=== PATIENT | male | born 1950 | race African-American/Black ===

== ENCOUNTER 2017-06-20 04:51 | Emergency (ER) | payer MEDICARE, BC | END 2017-06-20 05:18 | disposition left against medical advice (07) | LOC: ERS 04:51 | DX: Z53.21 Procedure and treatment not carried out due to patient leaving prior to being seen by health care provider (principal) ==

== ENCOUNTER 2017-07-02 07:43 | Outpatient (CLI) | payer MEDICARE, BC ==
--- NOTE | 2017-07-02 11:14 | MRI ---
MRI CERVICAL SPINE WITHOUT CONTRAST: Date: 07/02/17 HISTORY: Cervicalgia. Cervical radiculopathy. COMPARISON: None. TECHNIQUE: Cervical spine MRI is performed without intravenous Gadolinium administration. Multisequential, multi planar imaging is performed. FINDINGS: There is straightening of the normal cervical lordosis. Cervical spine vertebral body height is maint ained. There is no fracture. There is T1 marrow signal hypointensity with associated T2 and STIR hype rintensity involving the inferior end plate of C4, superior end plate of C5, inferior end plate of C7 , and superior end plate of T1. Type II Modic changes are favored. No MR evidence of ligamentous inju ry. Visualized brain parenchyma, cervicomedullary junction, cervical cord, and the upper thoracic cord fong ve a normal size and signal intensity. C2-C3: There is a central disc osteophyte complex that abuts the thecal sac. There is an abnormal T2 hyperin tensity along the right aspect of the cord. No high grade central canal stenosis or high grade forami nal narrowing. C3-C4: No significant disc osteophyte complex. No significant central canal stenosis. Moderate right foramin al narrowing. Mild to moderate left foraminal narrowing. C4-C5: Broad based disc osteophyte complex abuts the thecal sac. Mild central canal stenosis. Degenerative c hanges of bilateral uncovertebral joints results in moderate to severe right and moderate left forami nal narrowing. C5-C6: Broad based disc osteophyte complex abuts the thecal sac. No high grade central canal stenosis. Degen erative changes in bilateral uncovertebral joints results in moderate to severe bilateral foraminal n arrowing. C6-C7: No significant disc osteophyte complex. No significant central canal stenosis. Degenerative changes o f bilateral uncovertebral joints results in mild to moderate bilateral foraminal narrowing. C7-T1: Broad based disc osteophyte complex without significant central canal stenosis. Degenerative changes of bilateral uncovertebral joints results in mild to moderate right and mild left foraminal narrowing . IMPRESSION: 1. Degenerative changes of the cervical spine as above. There is no high grade central canal stenosi s. 2. Nonspecific T2 and STIR hyperintensity involving the right aspect of the cord at the C2-C3 level. Postcontrast imaging is recommended for complete evaluation. Area of malacic change is less favored given the location of the signal abnormality and given the fact that there is no high grade central c anal stenosis. POS: KALANIH
== END 2017-07-02 07:44 | disposition home or self-care (01) ==
LOC: MRI 07:43
PROVIDERS: ATTEND Family Medicine
DX: M54.12 Radiculopathy, cervical region (principal); M54.2 Cervicalgia; M47.892 Other spondylosis, cervical region
CPT/HCPCS: 72141

== ENCOUNTER 2018-07-27 21:20 | Emergency (ER) | payer MEDICARE, BC ==
[2018-07-27 21:47] LABS: #Eosinphils 0.1 thou/uL (0.0-0.7); #Lymphocytes 1.9 thou/uL (1.20-3.40); #Monocytes 0.5 thou/uL (0.11-0.59); #Neutrophils 2.9 thou/uL (1.40-6.50); %Basophils 0.4 % (0.0-1.0); %Lymphocytes 35.2 % (21.0-51.0); %Monocytes 9.8 % (0.0-10.0); %Neutrophils 52.6 % (42.0-75.0); Hemoglobin 13.5 g/dL (14.0-18.0); Mean Corpuscular HGB CONC 33.3 g/dL (32.0-36.0); Mean Corpuscular Hemoglobin 28.7 pg (27.0-31.0); Mean Corpuscular Volume 86.1 fL (78.0-98.0); Mean Platelet Volume 8.1 fL (7.4-10.4); Platelet Count 198 thou/uL (130-400); White Blood Cell (WBC) Count 5.4 thou/uL (4.8-10.8)
[2018-07-27 22:10] LABS: ALT (SGPT) 15 U/L (8-55); AST (SGOT) 21 U/L (5-34); Albumin 4.5 g/dL (3.4-4.8); Alkaline Phosphatase 95 U/L (40-150); Anion Gap 17 mmol/L (10-20); BUN (Urea Nitrogen) 14 mg/dL (8.4-25.7); Bilirubin, Total 0.7 mg/dL (0.2-1.2); Calc. Creatinine Clearance 0 mL/min (70-130); Carbon Dioxide 24 mmol/L (23-31); Chloride 101 mmol/L (98-107); Estimated GFR-MDRD 80; Glucose 93 mg/dL (80-115); Lipase 29 U/L (8-78); Potassium 3.7 mmol/L (3.5-5.1); Protein, Total 7.5 g/dL (5.8-8.1); Sodium 138 mmol/L (136-145)
[2018-07-28] MEDS ORDERED: Ondansetron ODT 8 MG TAB ONE (00:23)
[2018-07-28] MEDS ORDERED: Dicyclomine 20 MG TAB ONE (00:23)
== END 2018-07-28 00:31 | disposition home or self-care (01) ==
LOC: ERS 21:20
DX: R10.9 Unspecified abdominal pain (principal); I10 Essential (primary) hypertension; Z79.899 Other long term (current) drug therapy; Z79.82 Long term (current) use of aspirin
CPT/HCPCS: 36415; 80053; 83690; 85025; 99284

== ENCOUNTER 2019-02-18 10:14 | Emergency (ER) | payer MEDICARE, BC ==
[2019-02-18] MEDS ORDERED: Iopamidol 370 76% 100 ML VIAL ONE (11:44)
[2019-02-18 11:52] LABS: PTT 30.6 SEC (22.9-36.1); Prothrombin Time 13.6 SEC (12.0-14.7)
[2019-02-18 11:54] LABS: #Eosinphils 0.1 thou/uL (0.0-0.7); #Monocytes 0.5 thou/uL (0.11-0.59); #Neutrophils 2.4 thou/uL (1.40-6.50); %Basophils 0.9 % (0.0-1.0); %Eosinophils 2.3 % (0.0-10.0); %Lymphocytes 25.8 % (21.0-51.0); %Monocytes 11.4 % (0.0-10.0); %Neutrophils 59.6 % (42.0-75.0); Hemoglobin 13.7 g/dL (14.0-18.0); Mean Corpuscular HGB CONC 32.7 g/dL (32.0-36.0); Mean Corpuscular Hemoglobin 28.6 pg (27.0-31.0); Mean Corpuscular Volume 87.4 fL (78.0-98.0); Mean Platelet Volume 8.5 fL (7.4-10.4); Platelet Count 169 thou/uL (130-400); RBC Distribution Width 12.8 % (11.5-14.5); Red Blood Cell (RBC) Count 4.81 mill/uL (4.70-6.10)
[2019-02-18 12:09] LABS: ALT (SGPT) 21 U/L (8-55); AST (SGOT) 21 U/L (5-34); Albumin 4.1 g/dL (3.4-4.8); Alkaline Phosphatase 85 U/L (40-110); Anion Gap 11 mmol/L (10-20); BUN (Urea Nitrogen) 12 mg/dL (8.4-25.7); Bilirubin, Total 0.6 mg/dL (0.2-1.2); Calc. Creatinine Clearance 0 mL/min (70-130); Carbon Dioxide 28 mmol/L (23-31); Chloride 105 mmol/L (98-107); Estimated GFR-MDRD Greater than 90; Globulin 2.7 g/dL (2.4-3.5); Glucose 92 mg/dL (80-115); Potassium 3.9 mmol/L (3.5-5.1); Protein, Total 6.8 g/dL (5.8-8.1); Sodium 140 mmol/L (136-145)
[2019-02-18 12:18] LABS: Bilirubin Negative (Negative); Blood, Urine 2+ (Negative); Clarity Clear (Clear); Glucose, Urine (Dipstick) Normal (Negative); Leukocyte Negative Leu/uL (Negative); Nitrite Negative (Negative); Protein, Urine (Dipstick) 10 mg/dL (Neg-Trace); RBC/HPF Greater than 50 HPF (0-3); Squamous Epithelial 0-3 HPF (0-3); Urobilinogen Normal mg/dL (Less than 2); WBC/HPF 0-3 HPF (0-3)
[2019-02-18 12:19] LABS: Bacteria/HPF 1+ HPF (None Seen)
--- NOTE | 2019-02-18 13:08 | CT ---
CT abdomen and pelvis with IV contrast. Oral contrast was not administered. INDICATIONS: Hematuria. Bleeding from penis. COMPARISON: 09/11/2012 CT abdomen pelvis FINDINGS: Lung bases are clear There is a 1.0 cm cyst left lobe of liver. There are 2 0.7 cm low-density lesions in the right lobe o f liver, probably cysts but too small adequately characterize. Liver, spleen, and pancreas otherwise unremarkable. Stomach and duodenum appear unremarkable. Adrenal glands appear normal. There are least 3 subcentimeter low-density foci in the right kidney, most likely small cysts. Kidney s otherwise unremarkable. Small bowel loops are normal caliber and exhibit normal fold pattern. Appendix is identified and appears unremarkable. Colon is unremarkable. Aorta is normal caliber. No evidence of retroperitoneal or mesenteric adenopathy. Urinary bladder unremarkable. Prostate unremarkable. Subcutaneous tissues, abdominal wall, and muscular structures appear unremarkable. Osseous structures appear unremarkable. IMPRESSION: 1. Low-density foci in the liver most likely small cysts but too small to adequately characterize 2. No evidence of acute process
== END 2019-02-18 13:22 | disposition home or self-care (01) ==
LOC: ERS 10:14
DX: R31.0 Gross hematuria (principal); I10 Essential (primary) hypertension; Z79.82 Long term (current) use of aspirin; Z79.899 Other long term (current) drug therapy
CPT/HCPCS: 36415; 74177; 80053; 81003; 81015; 85025; 85610; 85730; Q9967

== ENCOUNTER 2024-04-14 10:32 | Outpatient (CLI) | payer MEDICARE, BC | END 2024-04-14 10:33 | disposition home or self-care (01) | LOC: MRI 10:32 | PROVIDERS: ATTEND Family Medicine | DX: M54.16 Radiculopathy, lumbar region (principal); M48.061 Spinal stenosis, lumbar region without neurogenic claudication; M48.07 Spinal stenosis, lumbosacral region | CPT/HCPCS: 72148 ==